=== PATIENT | female | born 1945 | race Caucasian/White ===

== ENCOUNTER 2017-07-20 18:08 | Observation (INO) | payer MEDICARE, SELFPAY ==
[2017-07-20] VITALS (8 sets, daily range): BP systolic 129–210; BP diastolic 91–105; PULSE 91–115; RESP 16–20; TEMP 36.6–37.3; O2SAT 96–98; BMI 21.4; BMI 21.5
--- NOTE | 2017-07-20 20:14 | EKG12_ITS ---
Test Reason : DIZZINESS Blood Pressure : / mmHG Vent. Rate : 102 BPM Atrial Rate : 102 BPM P-R Int : 184 ms QRS Dur : 104 ms QT Int : 394 ms P-R-T Axes : 059 069 006 degrees QTc Int : [address] & T wave abnormality, consider anterior ischemia Abnormal ECG Confirmed by BRYCE BARAJAS, JASVIR ([id number]), film editor supervisor KIM RENDON ([id number]) on 07/23/2017 2:58:05 PM Referred By: SAUNDRA Confirmed By:JASVIR WU MD
[2017-07-20] MEDS: 0.9% Normal Saline 1,000 ML 1000 ML IV (20:43)
[2017-07-20 20:46] LABS: Bacteria 0 SEEN /hpf (None Seen)
[2017-07-20 20:51] LABS: Color, Urine Yellow (Yellow); Glucose, Dipstick Normal (Normal); Ketone-Dipstick 50 mg/dl (Negative); Leukocyte Esterase-Dipstick 25 /ul (Negative); Nitrite-Dipstick Negative (Negative); Occult Blood-Urine 50 /ul (Negative); Protein-Dipstick 15 mg/dl (Negative); Urine Bilirubin Dipstick Negative (Negative); Urine Clarity Clear (Clear); Urine Urobilinogen Normal (Normal)
[2017-07-20 20:53] LABS: Absolute Neutrophil Count 7.1 X10^3/uL (2.0-7.7); Basophil# 0.01 X10^3/uL; Basophil% 0.1 % (0-1); Eosinophil# 0.01 X10^3/uL; Eosinophils% 0.1 % (0-5); Hematocrit 43.5 % (37-47); Hemoglobin 14.3 g/dl (12.0-15.0); Lymphocyte % 23.2 % (19-41); Mean Corp Hgb Conc 32.9 g/gl (32-36); Mean Corpuscular Hgb 30.7 pg (27.0-32.0); Mean Corpuscular Volume 93.3 fL (81-99); Mean Platelet Vol. 10.2 fl (6.2-12.0); Monocyte% 7.7 % (0-10); Neutrophil # 7.11 X10^3/uL (2.7-7.7); Neutrophil % 68.8 % (47-70); Platelet Count 243 K/mm3 (150-450); RBC Distribution Width CV 12.3 % (11.6-14.6); RBC Distribution Width SD 41.6 fl (35.1-43.9); Red Blood Count 4.66 M/mm3 (4.2-5.4); White Blood Count 10.3 K/mm3 (4.4-11.0)
[2017-07-20 20:55] LABS: POSITIVE COUNT NO; POSITIVE DIFFERENTIAL NO; POSITIVE MORPHOLOGY NO
[2017-07-20 20:56] LABS: International Normalized Ratio 1.1; Prothrombin Time (Protime)PT. 14.4 SECONDS (11.7-14.9)
[2017-07-20 20:57] LABS: Mucous, Urine 2+ /hpf (<or=2+); Red Blood Cells-Urine 0-5 SEEN /hpf (0-5); Squamous Epithelial Cells - UA 0-5 SEEN /hpf (5-10); White Blood Cells 0-5 SEEN /hpf (0-5)
[2017-07-20 20:57] LABS: Partial Thromboplast Time 27.9 Seconds (24.1-36.2)
[2017-07-20 21:15] LABS: ALB/GLOB Ratio 1.3 RATIO (0.9-2.4); AST(SGOT) 28 U/L (15-37); Alanine Aminotransfer ALT/SGPT 20 U/L (13-56); Albumin, Serum 4.1 g/dL (3.2-5.0); Alkaline Phosphatase 95 U/L (45-117); Anion Gap 11 (5-15); BUN 14 mg/dL (7-18); BUN/Creat Ratio 17.9 RATIO (10-20); Calcium,Total 8.7 mg/dL (8.5-10.1); Chloride 108 mmol/L (98-107); Creatinine, Serum 0.78 mg/dL (0.55-1.02); EST Glomerular Filtration Rate 76 mL/min (>60); Est Glom Filt Rate - Afr Amer 92 mL/min (>60); Estimated Creatinine Clearance 42.62 ml/min; Globulin 3.1 g/dL (2.2-4.2); Glucose 99 mg/dL (74-106); Lipase 134 U/L (73-393); Magnesium 2.5 mg/dL (1.6-2.6); Potassium 2.9 mmol/L (3.5-5.1); Protein, Total 7.2 g/dL (6.4-8.2); Sodium Level 144 mmol/L (136-145); Thyroid Stim Hormone (TSH) 0.92 uIU/mL (0.358-3.74)
[2017-07-20] MEDS: 0.9% Normal Saline 1,000 ML 150 ML IV (21:48)
--- NOTE | 2017-07-20 22:15 | RAD_ITS ---
STUDY: X-RAY CHEST REASON FOR EXAM: Female, 72 years old. Weakness TECHNIQUE: Single frontal view COMPARISON: None. FINDINGS: The lungs are expanded. There is minimal left basilar atelectasis. Normal size heart. Normal mediastinum and meghan. Normal visualized pulmonary arteries. Normal visualized aortic arch and descending thoracic aorta. Mild degenerative changes of the thoracic spine. Normal visualized ribs, clavicles, and shoulders. There is no demonstrated abnormality of the visualized soft tissue structures of the upper abdomen. RAD/Chest 1 View (Portable) IMPRESSION: Minimal left basilar atelectasis. Electronically Signed: Sagar Tesfaye DO at 22:27 EST Tel [phone], Service support ,
--- NOTE | 2017-07-20 22:23 | PCM.HP.STD ---
Problem List (1) Hypertension Status: Chronic (2) Personal history of squamous cell carcinoma of skin Status: Chronic Comment: Z85.828 (3) Neoplasm of skin of upper arm Status: Chronic Comment: D49.2 8 mm lesion left anterior arm (4) Neoplasm of skin of eyelid Status: Chronic Comment: D49.2 8 mm lesion left lateral lower eyelid History of Present Illness Date of Admission: 07/20/17 Chief Complaint: Nausea and vomiting. The patient is a 72 year old F with past medical history as mentioned above presented to the emergency room because of nausea and vomiting. Her illness started last night mainly with nausea, this morning started to have vomiting, couple of times, associated with dizziness and poor appetite and without aggravating or relieving factors. Also, she complained of palpitation, felt that her heart is beating fast, no associated symptoms such as chest pain, syncope or presyncope. She denied abdominal pain, diarrhea or constipation. Denies fever or chills. Reportedly, she has been going under a lot of stress because she is being evicted from her house. She had a history of hypertension and according to the patient, her blood pressure is under fair controlled with 3 different antihypertensive medications. She had a history of multiple skin cancer status post resection. In the emergency room, patient was clearly anxious and restless. She was afebrile, heart rate has been jumping from 90s up to 130s. Blood pressure is labile as well. Her pulse ox was 96% on room air. Her routine blood work was remarkable for potassium of 2.9, otherwise normal. Serum magnesium and TSH were normal. LFT was normal. Troponin was negative. EKG revealed normal sinus rhythm, normal NE interval, normal QRS, inverted T-wave in lead V2, ST segment depression in leads V3, V4, V5 and V6 and those changes are new compared to EKG from March,. Chest x-ray showed questionable no acute findings. She is being admitted for hypokalemia, EKG changes, uncontrolled hypertension and tachyarrhythmia. 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) C44.119 8 mm basal cell carcinoma left lateral lower eyelid Family history of skin cancer (Chronic) Z80.8 Personal history of squamous cell carcinoma of skin (Chronic) Z85.828 Personal history of malignant melanoma (Chronic) Z85.820 Neoplasm of skin of upper arm (Chronic) D49.2 8 mm lesion left anterior arm Neoplasm of skin of eyelid (Chronic) D49.2 8 mm lesion left lateral lower eyelid Allergies shellfish derived Allergy (Verified 07/20/17 18:10) Swelling tetracycline Adverse Reaction (Verified 07/20/17 18:10) Nausea/Vom/Diarrhea Home Medications: Ambulatory Orders Medication Instructions Recorded Bee Pollen 550 mg PO DAILY 11/25/15 Calcium Carbonate [Calcium] 600 mg PO DAILY 11/25/15 Cyanocobalamin (Vitamin B-12) 1,000 mcg PO DAILY 11/25/15 [Vitamin B-12] Hydrochlorothiazide [Hctz] 25 mg PO DAILY 11/25/15 Lisinopril [Zestril] 20 mg PO BID 11/25/15 Metoprolol Tartrate [Lopressor 50 mg PO BID 11/25/15 (beta gavino)] Proplius 1 tab PO DAILY 11/25/15 [place] Jelly 500 mg PO DAILY 11/25/15 Vitamin A 8,000 unit PO DAILY 11/25/15 Vitamin E 1,000 unit PO DAILY 03/05/17 Amlodipine [Norvasc] 5 mg PO DAILY 03/30/17 L. Acidophilus/Pectin, [place] 1 each PO BID #8 tablet 03/30/17 [Acidophilus-Pectin Captab] ProMETHAzine [Phenergan] 25 mg PO Q6H PRN PRN 07/20/17 Surgical History: hysterectomy Psychiatric History: No pertinent psych hx SENIOR DIRECTOR OF STRATEGY History: No pertinent SENIOR DIRECTOR OF STRATEGY history Lives: Spouse/ Significant Other Smoking Status: Former smoker Alcohol: None Drugs: None - *Family History Maternal History Items: No pertinent history Paternal History Items: No pertinent history Review of Systems Constitutional: Reports: Anorexia. Denies: Chills, Fever, Weakness Eyes: Denies: Blurred vision, Double vision, Drainage, Redness HEENT: Denies: Difficulty Hearing, Ear Pain, Eye Pain, Nasal Congestion, Sore Throat Cardiovascular: Reports: Light Headedness. Denies: Chest Pain, Chest Pressure, Edema, Heaviness, Orthopnea, Paroxysmal Noc. Dyspnea, Syncope Respiratory: Denies: Cough, Pleuritic Pain, Shortness of Breath, Sputum production, Wheezing Gastrointestinal: Reports: Nausea, Vomiting. Denies: Abdominal Pain, Constipation, Diarrhea Genitourinary: Denies: Dysuria, Frequency, Hematuria Musculoskeletal: Denies: Arm Pain, Back Pain, Foot Pain Skin: Denies: Dryness, Rash Neurological: Denies: Balance problems, Double vision, Change in Speech, Slurred speech, Confusion, Headaches, Incoordination, Numbness Psychiatric: Denies: Anxiety, Depression Endocrine: Denies: Change in Body Habitus, Polydipsia VTE Information - Inpt Only VTE Present on Admission: No VTE Mechan Device Prophylaxis: None VTE Pharm Prophylaxis ordered?: Yes - Physical Exam General: Alert, Oriented x3, Cooperative, No apparent distress HEENT: Atraumatic, PERRLA, EOMI Oral: Moist Mucosa, No Gingival or Mucosal Lesions/ Ulcerations Neck: Supple, No JVD, Negative Carotid Bruits, Trachea Midline, Thyroid Normal Size and Texture Lungs: Clear to auscultation, No rhonchi, No wheeze, No rales, Diminished Cardiovascular: Regular rate, Regular Rhythm, Normal S1, Normal S2, PMI Normal, Tachycardic Abdomen: Bowel Sounds Present, Soft, Non Tender, Non-Distended, No Hepato-splenomegaly Extremities: No clubbing, No cyanosis, No edema Skin: No rashes, No breakdown Lymphatic: No Cervical, Supraclavicular, or Inguinal Adenopathy Neurological: Cranial nerves II-XII grossly intact, Motor Exam 5/5 strength throughout Psych/Mental Status: Anxious, Alert and oriented to time, place, person, mood and affect Vital Signs Temp Pulse Resp BP Pulse Ox 99.1 F 109 H 20 H 180/105 H 96 07/20/17 22:19 07/20/17 22:13 07/20/17 22:13 07/20/17 22:19 07/20/17 22:13 Oxygen Delivery Method Room Air Weight: 125 lb Body Mass Index (BMI) 21.4 Laboratory Tests Past 24 Hrs 07/20/17 07/20/17 07/20/17 20:27 20:32 20:32 WBC 10.3 RBC 4.66 Hgb 14.3 Hct 43.5 MCV 93.3 MCH 30.7 MCHC 32.9 RDW 12.3 RDW Differential 41.6 Plt Count 243 MPV 10.2 Immature Gran % (Auto) 0.100 Neut % (Auto) 68.8 Lymph % (Auto) 23.2 [place] % (Auto) 7.7 Eos % (Auto) 0.1 Baso % (Auto) 0.1 Absolute Neuts (auto) 7.1 Absolute Lymphs (auto) 2.40 Total Counted Not Reportable PT 14.4 INR 1.1 APTT 27.9 Sodium Potassium Chloride Carbon Dioxide Anion Gap BUN Creatinine Estim Creat Clear Calc Est GFR (MDRD) Af Amer Est GFR (MDRD) Non-Af BUN/Creatinine Ratio Glucose Calcium Magnesium Total Bilirubin AST ALT Alkaline Phosphatase Troponin I Total Protein Albumin Globulin Albumin/Globulin Ratio Lipase TSH Urine Color Yellow Urine Clarity Clear Urine pH 6.0 Ur Specific [place] 1.010 Urine Protein 15 H Urine Glucose (UA) Normal Urine Ketones 50 H Urine Occult Blood 50 H Urine Nitrite Negative Urine Bilirubin Negative Urine Urobilinogen Normal Ur Leukocyte Esterase 25 H Urine RBC 0-5 SEEN Urine WBC 0-5 SEEN Ur Squamous Epith Cells 0-5 SEEN Urine Bacteria 0 SEEN Urine Mucus 2+ 07/20/17 20:32 WBC RBC Hgb Hct MCV MCH MCHC RDW RDW Differential Plt Count MPV Immature Gran % (Auto) Neut % (Auto) Lymph % (Auto) [place] % (Auto) Eos % (Auto) Baso % (Auto) Absolute Neuts (auto) Absolute Lymphs (auto) Total Counted PT INR APTT Sodium 144 Potassium 2.9 L Chloride 108 H Carbon Dioxide 25.0 Anion Gap 11 BUN 14 Creatinine 0.78 Estim Creat Clear Calc 42.62 Est GFR (MDRD) Af Amer 92 Est GFR (MDRD) Non-Af 76 BUN/Creatinine Ratio 17.9 Glucose 99 Calcium 8.7 Magnesium 2.5 Total Bilirubin 0.90 AST 28 ALT 20 Alkaline Phosphatase 95 Troponin I < 0.02 Total Protein 7.2 Albumin 4.1 Globulin 3.1 Albumin/Globulin Ratio 1.3 Lipase 134 TSH 0.92 Urine Color Urine Clarity Urine pH Ur Specific [place] Urine Protein Urine Glucose (UA) Urine Ketones Urine Occult Blood Urine Nitrite Urine Bilirubin Urine Urobilinogen Ur Leukocyte Esterase Urine RBC Urine WBC Ur Squamous Epith Cells Urine Bacteria Urine Mucus Assessment/Plan This is a 72 years old female patient presented to the emergency room because of nausea and vomiting, found to have hypokalemia with EKG changes as well as tachyarrhythmia. #1 hypokalemia: This is likely because of nausea, vomiting as well as HCTZ. Potassium is 2.9. EKG reviewed, revealed changes as mentioned below but they are not typical for hypokalemia. Serum TSH and serum magnesium were normal. Troponin is negative. Plan: Admit to PCU for observation, aggressive replacement of potassium, repeat BMP tomorrow morning, repeat EKG tomorrow morning, hold HCTZ, PT OT evaluation and treatment. #2 EKG changes: EKG revealed sinus rhythm, inverted T-wave in lead V2 and ST segment depression in leads V3, V4, V5 and V6. Those changes are new compared to EKG from March,. No acute ischemic changes. Troponin is negative. Plan: Serial cardiac enzymes, repeat EKG tomorrow morning, replace potassium as above. #3 tachyarrhythmia: During his stay in the emergency department, patient's heart rate has been fluctuating significantly from 90s up to 130s. She has been in sinus tachycardia with occasional PVCs. EKG changes as noted above. TSH is normal. Patient mentioned that she is undergoing lots of stress as she is being evicted from her house. Plan: Cardiac monitoring, 2D echocardiogram. May need to consider cardiology consult if patient continued to have this tachyarrhythmia. #4 hypertension: Blood pressure is uncontrolled, has been around 170-180 systolic. Plan to continue Norvasc, lisinopril and metoprolol, IV hydralazine as needed. #5 history of multiple skin cancers, status post resections. #6 DVT prophylaxis: Subcu Lovenox. This note was generated with [employer] dictation software. It may contain incorrect words, spelling, and punctuation that were not noted in checking the note before signing. Code Visit OBSV E&M: [id number] Initial observation care L3
--- NOTE | 2017-07-20 23:12 | ECHOD_ITS ---
Reason For Study: Arrhythmia Procedure This was a 2D Doppler, Color Flow transthoracic echocardiogram. Exam performed portable in patient room. Left Ventricle Normal size and thickness. The estimated ejection fraction is 65 %. Normal diastology for age. No regional wall motion abnormalities noted. Right Ventricle Normal size and thickness. Normal systolic function. Atria Normal left atrium. Normal right atrium. Normal atrial septum. Mitral Valve The mitral valve is structurally normal. No prolapse or stenosis seen. Trivial mitral valve insufficiency. Tricuspid Valve Normal tricuspid valve. Mild (1+) tricuspid valve insufficiency. Right ventricular systolic pressure estimated to be 40 mmHg. Mild pulmonary hypertension. Aortic Valve Normal aortic valve. Trisinus/trileaflet aortic valve. Pulmonic Valve Normal pulmonic valve. Great Vessels Normal aortic root. Normal arch. Normal inferior vena cava. Inferior vena cava collapse with sniff. Pericardium/Pleural No pericardial effusion. MMode/2D Measurements & Calculations LVIDd: 3.8 cm IVSd: 1.2 cm Ao root diam: 2.4 cm LVIDs: 1.7 cm LVPWd: 0.96 cm LA dimension: 5.0 cm RVDd: 2.8 cm FS: 55.3 % LAV(MOD-bp): 63.0 ml LA A4 area: 18.6 cm2 RA A4 area: 13.7 cm2 LAV(MOD-bp) Indexed: 39.3 ml/m2 LAV(MOD-sp2): 79.1 ml LAV(MOD-sp4): 48.2 ml Doppler Measurements & Calculations MV E max rogers: 97.9 cm/sec Lat Peak E' Rogers: 8.6 cm/sec Med Peak E' Rogers: 7.7 cm/sec MV A max rogers: 88.4 cm/sec E/E' lat: 11.3 E/E' med: 12.8 MV E/A: 1.1 Ao V2 max: 153.7 cm/sec LV V1 max: 135.6 cm/sec PA V2 max: 89.8 cm/sec Ao max P.4 mmHg LV V1 max P.4 mmHg TR max rogers: 280.4 cm/sec TR max P.5 mmHg Interpretation Summary The estimated ejection fraction is 65 %. Normal diastology for age. Trivial mitral valve insufficiency. Mild (1+) tricuspid valve insufficiency. Right ventricular systolic pressure estimated to be 40 mmHg. Mild pulmonary hypertension. There is no comparison study available. Ordering Physician: Eamon Saunders Referring Physician: Julius Bach M.D. Performed By: Rosario Rashid RDCS
--- NOTE | 2017-07-20 23:38 | ED.VISSUMM ---
- ER Visit Summary Date of Service: 07/20/17 Chief Complaint: Vomiting History of Present Illness: The patient is a 72 F who yesterday evening began to have vomiting. She states she had one episode of diarrhea. She states she has been able to keep a little bit of 7-Up down today but otherwise has not had anything to eat or drink. She notes some chills and sweats. No chest pain no shortness of breath. The patient is under a difficult amount of stress. She is currently being evicted from her home. Physical Examination: Afebrile vital signs are stable Gen: Well-nourished well-developed Head: Normocephalic atraumatic Eyes: Perrl EOMI ENT: TMs clear no rhinorrhea moist mucous membranes Neck: Supple no lymphadenopathy no JVD nontender CVS: Regular rate rhythm no murmurs normal S1-S2 Respiratory: No distress clear to auscultation bilaterally chest nontender Abdomen: Soft nontender nondistended normal bowel sounds no masses Back: Nontender Extremity: Nontender no edema Skin: Normal color no rash Neuro: alert orientated ?3 CN II-XII intact normal strength sensation reflexes gait cerebellar Psych: Patient very anxious Test Results: EKG sinus at a rate of 102. There are deeply inverted T waves in V1 V2 that are changed from March 2017. Potassium is 2.9. Emergency Department Course and Treatment: Patient received potassium chloride fluids and Zofran. Plan is admission Impression: 1. Abnormal EKG 2. Hypokalemia 3. Vomiting This note was generated with [employer] dictation software. It may contain incorrect words, spelling, and punctuation that were not noted in review of the chart prior to signing ED Disposition - Plan for ED Patient: Disposition: Acute Care Hospital [facility] Chief Complaint: Nausea/Vomiting
[2017-07-20] MEDS: 0.9% Normal Saline 1,000 ML 75 ML IV (23:40)
--- NOTE | 2017-07-20 23:45 | ED.DCSUM_ITS ---
- ER Visit Summary Date of Service: 07/20/17 Chief Complaint: Vomiting History of Present Illness: The patient is a 72 F who yesterday evening began to have vomiting. She states she had one episode of diarrhea. She states she has been able to keep a little bit of 7-Up down today but otherwise has not had anything to eat or drink. She notes some chills and sweats. No chest pain no shortness of breath. The patient is under a difficult amount of stress. She is currently being evicted from her home. Physical Examination: Afebrile vital signs are stable Gen: Well-nourished well-developed Head: Normocephalic atraumatic Eyes: Perrl EOMI ENT: TMs clear no rhinorrhea moist mucous membranes Neck: Supple no lymphadenopathy no JVD nontender CVS: Regular rate rhythm no murmurs normal S1-S2 Respiratory: No distress clear to auscultation bilaterally chest nontender Abdomen: Soft nontender nondistended normal bowel sounds no masses Back: Nontender Extremity: Nontender no edema Skin: Normal color no rash Neuro: alert orientated ?3 CN II-XII intact normal strength sensation reflexes gait cerebellar Psych: Patient very anxious Test Results: EKG sinus at a rate of 102. There are deeply inverted T waves in V1 V2 that are changed from March 2017. Potassium is 2.9. Emergency Department Course and Treatment: Patient received potassium chloride fluids and Zofran. Plan is admission Impression: 1. Abnormal EKG 2. Hypokalemia 3. Vomiting This note was generated with [employer] dictation software. It may contain incorrect words, spelling, and punctuation that were not noted in review of the chart prior to signing ED Disposition - Plan for ED Patient: Disposition: Acute Care Hospital [facility] Chief Complaint: Nausea/Vomiting
[2017-07-20] MEDS: Ondansetron 4 MG/2 ML Vial IV (23:49)
[2017-07-21] VITALS (9 sets, daily range): BP systolic 125–157; BP diastolic 59–82; PULSE 39–98; RESP 16–18; TEMP 36.6–37.2; O2SAT 94–98
[2017-07-21] MEDS: Acetaminophen 325 MG Tablet 650 MG PO (01:42)
--- NOTE | 2017-07-21 05:55 | EKG12_ITS ---
Test Reason : AM EKG Blood Pressure : / mmHG Vent. Rate : 084 BPM Atrial Rate : 084 BPM P-R Int : 132 ms QRS Dur : 100 ms QT Int : 426 ms P-R-T Axes : 067 072 -16 degrees QTc Int : 503 ms Sinus rhythm with Premature atrial complexes and Premature ventricular complexes or Fusion complexes Prolonged QT Abnormal ECG When compared with ECG of 20-JUL-2017 20:32, MANUAL COMPARISON REQUIRED, DATA IS UNCONFIRMED Confirmed by BRYCE BARAJAS, JASVIR ([id number]), slot editor KIM RENDON ([id number]) on 07/23/2017 3:18:00 PM Referred By: DOUGLAS Confirmed By:JASVIR WU MD
[2017-07-21 06:42] LABS: Anion Gap 8 (5-15); BUN 12 mg/dL (7-18); Calcium,Total 7.9 mg/dL (8.5-10.1); Chloride 114 mmol/L (98-107); Creatinine, Serum 0.63 mg/dL (0.55-1.02); EST Glomerular Filtration Rate 98 mL/min (>60); Est Glom Filt Rate - Afr Amer 118 mL/min (>60); Estimated Creatinine Clearance 42.62 ml/min; Glucose 84 mg/dL (74-106); Potassium 3.6 mmol/L (3.5-5.1); Sodium Level 146 mmol/L (136-145)
[2017-07-21] MEDS: amLODIPine 5 MG Tablet PO (09:40)
[2017-07-21] MEDS: Enoxaparin 40 MG/0.4 ML Syringe SC (09:40)
[2017-07-21] MEDS: Metoprolol Tartrate 50 MG Tablet PO (09:40)
[2017-07-21] MEDS: Lisinopril 20 MG Tablet PO (09:40)
--- NOTE | 2017-07-21 10:53 | PCM.DC ---
- Discharge Diagnoses Current Active Problems: Current Active and Chronic Problems Hypertension (Chronic) You will use the following diet at home:: No restrictions Discharge Activity: Return to Normal Activity Call your doctor if you observe: Shortness of breath, Dizziness, Fainting spells, Chest pain, Increased palpitations (irregular heartbeat) Allergies/Adverse Reactions: Allergies shellfish derived Allergy (Verified 07/20/17 18:10) Swelling tetracycline Adverse Reaction (Verified 07/20/17 18:10) Nausea/Vom/Diarrhea Medications to take at Discharge Bee Pollen 550 mg PO DAILY 11/25/15 Calcium Carbonate [Calcium] 600 mg PO DAILY 11/25/15 Cyanocobalamin (Vitamin B-12) [Vitamin B-12] 1,000 mcg PO DAILY 11/25/15 Hydrochlorothiazide [Hctz] 25 mg PO DAILY 11/25/15 Lisinopril [Zestril] 20 mg PO BID 11/25/15 Metoprolol Tartrate [Lopressor (beta gavino)] 50 mg PO BID 11/25/15 Proplius 1 tab PO DAILY 11/25/15 [place] Jelly 500 mg PO DAILY 11/25/15 Vitamin A 8,000 unit PO DAILY 11/25/15 Vitamin E 1,000 unit PO DAILY 03/05/17 Amlodipine [Norvasc] 5 mg PO DAILY 03/30/17 L. Acidophilus/Pectin, [place] [Acidophilus-Pectin Captab] 1 each PO BID #8 tablet 03/30/17 ProMETHAzine [Phenergan] 25 mg PO Q6H PRN PRN 07/20/17 Primary Care Physician: Earlene Al,Out of [NON-STAFF] - Please follow up with your Primary Care Physician in: 1 Week Proposed Discharge Date: 07/21/17
--- NOTE | 2017-07-21 10:56 | DCINST_ITS ---
- Discharge Diagnoses Current Active Problems: Current Active and Chronic Problems Hypertension (Chronic) You will use the following diet at home:: No restrictions Discharge Activity: Return to Normal Activity Call your doctor if you observe: Shortness of breath, Dizziness, Fainting spells , Chest pain, Increased palpitations (irregular heartbeat) Allergies/Adverse Reactions: Allergies shellfish derived Allergy (Verified 07/20/17 18:10) Swelling tetracycline Adverse Reaction (Verified 07/20/17 18:10) Nausea/Vom/Diarrhea Medications to take at Discharge Bee Pollen 550 mg PO DAILY 11/25/15 Calcium Carbonate [Calcium] 600 mg PO DAILY 11/25/15 Cyanocobalamin (Vitamin B-12) [Vitamin B-12] 1,000 mcg PO DAILY 11/25/15 Hydrochlorothiazide [Hctz] 25 mg PO DAILY 11/25/15 Lisinopril [Zestril] 20 mg PO BID 11/25/15 Metoprolol Tartrate [Lopressor (beta gavino)] 50 mg PO BID 11/25/15 Proplius 1 tab PO DAILY 11/25/15 [place] Jelly 500 mg PO DAILY 11/25/15 Vitamin A 8,000 unit PO DAILY 11/25/15 Vitamin E 1,000 unit PO DAILY 03/05/17 Amlodipine [Norvasc] 5 mg PO DAILY 03/30/17 L. Acidophilus/Pectin, [place] [Acidophilus-Pectin Captab] 1 each PO BID #8 tablet 03/30/17 ProMETHAzine [Phenergan] 25 mg PO Q6H PRN PRN 07/20/17 Primary Care Physician: Earlene Al,Out of [NON-STAFF] - Please follow up with your Primary Care Physician in: 1 Week Proposed Discharge Date: 07/21/17
--- NOTE | 2017-07-21 11:03 | DS.PCM_ITS ---
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 Agree with the above notes by the nurse practitioner. The patient is a 72 year old F Zane with intractable nausea and vomiting. Patient states that she gets stomach fits during periods of stress. Patient is recently undergoing emotional stress with the eviction that she and her are experiencing in having move into another house in [place]. Patient underwent workup which is thus far been unremarkable. Echocardiogram and repeat troponins are still pending but barring any abnormalities with those and patient can be discharged. Feels that much of the patient's gastric tussive symptoms are related with underlying anxiety and I talked the patient about this and recommended that was Zoloft and as well as Zofran as needed. Patient will need follow-up with her primary care doctor to see about titrating the Zoloft upwards as tolerated. I told the patient that this may only be a temporary measure but not to expect any noticeable change for a few weeks after starting medication. [] Discharge Diet: No Restrictions Discharge Activity: Return to Normal Activity Home Medications: Medications to take at Discharge Bee Pollen 550 mg PO DAILY 11/25/15 Calcium Carbonate [Calcium] 600 mg PO DAILY 11/25/15 Cyanocobalamin (Vitamin B-12) [Vitamin B-12] 1,000 mcg PO DAILY 11/25/15 Hydrochlorothiazide [Hctz] 25 mg PO DAILY 11/25/15 Lisinopril [Zestril] 20 mg PO BID 11/25/15 Metoprolol Tartrate [Lopressor (beta gavino)] 50 mg PO BID 11/25/15 Proplius 1 tab PO DAILY 11/25/15 Clawson Jelly 500 mg PO DAILY 11/25/15 Vitamin A 8,000 unit PO DAILY 11/25/15 Vitamin E 1,000 unit PO DAILY 03/05/17 Amlodipine [Norvasc] 5 mg PO DAILY 03/30/17 L. Acidophilus/Pectin, [place] [Acidophilus-Pectin [place]] 1 each PO BID #8 tablet 03/30/17 ProMETHAzine [Phenergan] 25 mg PO Q6H PRN PRN 07/20/17 Primary Care Physician: Earlene Doctor,Out of [NON-STAFF] - Meaningful Use Info Meaningful Use Diagnoses (Choose all that apply): None applicable Code Visit OBSV E&M: 02197 Observation care discharge <Trudy Castillo - Last Filed: 07/21/17 16:06> Discharge Date and Diagnosis Date of Admission: 07/20/17 Date of Discharge: 07/21/17 - Primary Discharge Diagnosis 1. Nausea, vomiting 2. Hypokalemia secondary to #1 3. 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) D04.62 8 mm squamous cell carcinoma in situ left anterior arm Basal cell carcinoma of left lower eyelid (Chronic) C44.119 8 mm basal cell carcinoma left lateral lower eyelid Family history of skin cancer (Chronic) Z80.8 Personal history of squamous cell carcinoma of skin (Chronic) Z85.828 Personal history of malignant melanoma (Chronic) Z85.820 Neoplasm of skin of upper arm (Chronic) D49.2 8 mm lesion left anterior arm Neoplasm of skin of eyelid (Chronic) D49.2 8 mm lesion left lateral lower eyelid Hospital Course and Treatment Imaging Results: Diagnostic Data Chest X-Ray 07/20/17 22:15 IMPRESSION: Minimal left basilar atelectasis. Electronically Signed: Sagar Tesfaye DO at 22:27 EST Tel [phone], Service support , Operations: None Procedures: 2-D Echocardiogram Summary of Care Provided: The patient is a 72 year old F admitted 07/20/2017 due to nausea and vomiting. Patient states she is currently moving out of her home due to being evicted. She states her and her both lost their jobs recently. She states she has a history of nervous stomach. And believes her presenting symptoms are associated to increased stress related to financial concerns. She denies diarrhea. Denies fever, chills. Denies chest pain, shortness of breath. Nausea and vomiting have resolved. She tolerated breakfast without difficulty. She does state she has poor appetite which she also feels is related to her nerves. EKG in the emergency room was noted to have T-wave inversion in lead II and ST segment depression in leads V3 through V6. Repeat EKG morning of discharge showed no change from prior. Troponin negative. Patient sinus rhythm to sinus tachycardia during admission. Heart rate in the 70s at discharge. Chest x-ray negative for acute process. Patient found to have hypokalemia with a potassium of 2.9 on admission secondary to nausea, vomiting. This was replaced, potassium 3.6 on discharge. Patient's past medical history includes hypertension and history of skin cancer. Blood pressure stable. Patient will resume home medication regimen. Echocardiogram showed an estimated ejection fraction of 65%, RVSP estimated to be 40 mmHg, mild tricuspid valve insufficiency. Patient will be discharged on Zofran as needed for nausea as well as Zoloft for depression. Patient seen and examined prior to discharge. Heart rate regular rate and rhythm. Lungs clear. Abdomen soft, nontender. Neuro grossly intact. Vital signs stable. Patient denies further nausea, vomiting. Denies chest pain, shortness of breath as noted above. Patient also states she has been doing significant physical exertion with moving out of her home. She denies chest pain or shortness of breath associated with exertion. Patient stable for discharge home to follow-up with primary care physician. Discharge Diet: No Restrictions Discharge Activity: Return to Normal Activity Call your doctor if you observe: Shortness of breath, Dizziness, Fainting spells , Chest pain, Increased palpitations (irregular heartbeat) Please follow up with your Primary Care Physician in: 1 Week Disposition: Home Minutes spent on discharge:: 35 Patient Condition:: Stable Meaningful Use Info Meaningful Use Diagnoses (Choose all that apply): None applicable
--- NOTE | 2017-07-21 11:27 | CASEMGMT ---
SW received a referral for patient. She has had a lot of stressors lately. SW met with patient, introduced self as well as role at [facility]. She explained to SW that her lost his job and she lost her job. She said her was working with an agency that was supposed to help them keep their home, but it didn't work out. She said someone came to their house and told them they needed to be out by Wednesday. They found a duplex to rent and her is moving stuff in right now. She said she has a finicky stomach and cannot handle stress very well. She said she and her are actually not anymore. They and he someone else. It lasted less than a year and he came back to her. They did not get re-. They went to counseling and it helped. DONNY listened and provided emotional support. DONNY offered to give patient a list of counseling agencies in the area and she accepted. She said she has insurance that her bought for both of them. She thanked DONNY for stopping by. Erica GONZALEZ MSW
[2017-07-21] MEDS: Ondansetron 4 MG/2 ML Vial IV (11:51)
--- NOTE | 2017-07-21 14:00 | CASEMGMT ---
DONNY received a voice mail from patient's sister in [place]. She is concerned patient is being discharged too early. SW called her back. She said she is surprised patient is being discharged already. DONNY told her that the physicians feel she is medically ready and does not require an acute hospital setting. She said patient is confused about who to follow up with, medications etc. DONNY told her that the nurse will go over all of her discharge instructions. She asked if SW's office follows up with patient's that are displaced. DONNY told her patient has a place to go to and no SW does not usually follow up with patients. DONNY told her SW gave her a list of counseling agencies. She asked if anything indicated patient needs help at home. DONNY told her she is getting around fine and it does not appear she is in need of home health. She said patient did fall and break her ankle 2 years ago. She thanked DONNY for calling her back. Erica GONZALEZ MSW
== END 2017-07-21 17:21 | disposition home or self-care (01) ==
LOC: ED 20:20 → PCU 22:25
PROVIDERS: Admitting Provider Hospitalist; Emergency Provider Emergency Medicine
DX: R11.2 Nausea with vomiting, unspecified (principal); I10 Essential (primary) hypertension; E87.6 Hypokalemia; Z85.828 Personal history of other malignant neoplasm of skin; Z79.899 Other long term (current) drug therapy; Z87.891 Personal history of nicotine dependence; F41.9 Anxiety disorder, unspecified; I27.20 Pulmonary hypertension, unspecified; I08.1 Rheumatic disorders of both mitral and tricuspid valves; I45.81 Long QT syndrome
CPT/HCPCS: 36415; 71045; 80048; 80053; 81001; 83690; 83735; 84443; 84484; 85025; 85610; 85730; 93005; 93306; 96361; 96372; 96374; 96375; 96376; 97162; 97166; 99218; 99282; J7030; A4216; G0378; J2405

== ENCOUNTER 2017-09-06 21:25 | Emergency (ER) | payer MEDICARE, SELFPAY ==
[2017-09-06 21:26] VITALS: BP 198/84; PULSE 76; RESP 17; TEMP 37; O2SAT 99; BMI 21.4
--- NOTE | 2017-09-06 22:10 | EKG12_ITS ---
Test Reason : Blood Pressure : / mmHG Vent. Rate : 064 BPM Atrial Rate : 075 BPM P-R Int : 140 ms QRS Dur : 104 ms QT Int : 466 ms P-R-T Axes : 065 055 -14 degrees QTc Int : 480 ms Sinus rhythm with marked sinus arrhythmia Incomplete right bundle branch block Nonspecific ST abnormality Abnormal ECG Confirmed by ALAN BARAJAS, STEVE ([id number]), assistant film editor KIM RENDON ([id number]) on 09/09/2017 12:50:12 PM Referred By: DERRICK Confirmed By:STEVE PHILLIPS MD
--- NOTE | 2017-09-06 22:37 | ED.DCSUM_ITS ---
- ER Visit Summary Date of Service: 09/06/17 Chief Complaint: Nausea, vomiting, generalized weakness History of Present Illness: The patient is a 72 F medical history significant for hypertension presents with nausea, vomiting, generalized weakness. Patient symptoms began earlier today. She states she became acutely nauseated. She has had a few bouts of bilious vomiting. She states she had one bout of loose watery diarrhea. She states she had similar symptoms about a month ago and she was actually admitted at that time because her potassium was low. She has had some bilateral hand cramping. She denies any chest pain. She denies any abdominal pain. She has had no fevers or chills. Patient has had prior hysterectomy and fibroid removal, but no other abdominal surgery. She denies any recent change in diet. She denies any recent change in medication. Physical Examination: Vital signs reviewed General: Well-nourished, well-developed Head: Normocephalic, atraumatic Eyes: Pupils equal and reactive, extraocular muscles intact Neck, supple, no lymphadenopathy Heart: Regular rate and rhythm Respiratory: No distress, clear bilaterally Abdomen: Soft, nontender, nondistended, no peritoneal signs Back: Nontender Extremities: Nontender, no edema, no cords Skin: Normal color no rash Neuro: Alert and oriented, no focal or lateralizing deficits Test Results: [] Emergency Department Course and Treatment: IV was established. The patient has a benign abdominal examination. I did not feel that imaging was necessary. I did obtain an EKG which was sinus with slight sinus arrhythmia. There is no prolonged QT or evidence of acute ischemic change. Patient was given Zofran with very minimal improvement of her nausea. Her labs do demonstrate a mild hypokalemia but otherwise unremarkable. Patient was given IV Phenergan. She had complete resolution of symptoms. She is resting comfortably. She was able to tolerate p.o. without issue. At this time, as the patient has had recent admission with workup and resolution of symptoms, I do feel that she is safe for outpatient therapy. The patient is comfortable with this plan of care. She will be discharged with oral Zofran. Treatment Plan: [] Disposition: Discharge Impression:. Nausea vomiting This note was generated with [employer] dictation software. It may contain incorrect words, spelling, and punctuation that were not noted in review of the chart prior to signing ED Disposition - Plan for ED Patient: Chief Complaint: Nausea/Vomiting/Diarrhea Instructions: ED Vomiting Diarrhea Nonspecific Ad Prescriptions: Ondansetron [Zofran Odt] 4 mg PO Q8H PRN PRN #10 tab PRN Reason: Nausea Referrals: Devan Bach [Primary Care Provider] -
[2017-09-06] MEDS: 0.9% Normal Saline 1,000 ML 1000 ML IV (22:45)
[2017-09-06] MEDS: Ondansetron 4 MG/2 ML Vial IV (22:45)
[2017-09-06 22:54] LABS: Bacteria 0 SEEN /hpf (None Seen)
[2017-09-06 22:56] LABS: Absolute Lymphocyte Count 1.47 X10^3/ul (0.83-4.51); Absolute Neutrophil Count 6.7 X10^3/uL (2.0-7.7); Basophil# 0.02 X10^3/uL; Basophil% 0.2 % (0-1); Eosinophil# 0.01 X10^3/uL; Eosinophils% 0.1 % (0-5); Hematocrit 42.6 % (37-47); Hemoglobin 14.2 g/dl (12.0-15.0); Lymphocyte # 1.47 X10^3/ul (4.0); Lymphocyte % 17.1 % (19-41); Mean Corp Hgb Conc 33.3 g/gl (32-36); Mean Corpuscular Hgb 30.7 pg (27.0-32.0); Mean Corpuscular Volume 92.2 fL (81-99); Mean Platelet Vol. 10.1 fl (6.2-12.0); Monocyte# 0.45 X10^3/uL; Monocyte% 5.2 % (0-10); Neutrophil # 6.66 X10^3/uL (2.7-7.7); Neutrophil % 77.3 % (47-70); Platelet Count 240 K/mm3 (150-450); RBC Distribution Width CV 12.1 % (11.6-14.6); RBC Distribution Width SD 40.7 fl (35.1-43.9); Red Blood Count 4.62 M/mm3 (4.2-5.4); White Blood Count 8.6 K/mm3 (4.4-11.0)
[2017-09-06 22:57] LABS: Color, Urine Yellow (Yellow); Glucose, Dipstick Normal (Normal); Ketone-Dipstick 50 mg/dl (Negative); Leukocyte Esterase-Dipstick 100 /ul (Negative); Nitrite-Dipstick Negative (Negative); Occult Blood-Urine 25 /ul (Negative); POSITIVE COUNT NO; POSITIVE DIFFERENTIAL NO; POSITIVE MORPHOLOGY NO; Protein-Dipstick 15 mg/dl (Negative); Urine Bilirubin Dipstick Negative (Negative); Urine Clarity Clear (Clear); Urine Urobilinogen Normal (Normal)
[2017-09-06 23:04] LABS: Mucous, Urine 1+ /hpf (<or=2+); Red Blood Cells-Urine 0-5 SEEN /hpf (0-5); Squamous Epithelial Cells - UA 0-5 SEEN /hpf (5-10); White Blood Cells 0-5 SEEN /hpf (0-5)
[2017-09-06 23:14] LABS: ALB/GLOB Ratio 1.4 RATIO (0.9-2.4); AST(SGOT) 14 U/L (15-37); Alanine Aminotransfer ALT/SGPT 16 U/L (13-56); Alkaline Phosphatase 105 U/L (45-117); Anion Gap 7 (5-15); BUN 13 mg/dL (7-18); BUN/Creat Ratio 13.6 RATIO (10-20); Chloride 105 mmol/L (98-107); Creatinine, Serum 0.95 mg/dL (0.55-1.02); EST Glomerular Filtration Rate 61 mL/min (>60); Est Glom Filt Rate - Afr Amer 74 mL/min (>60); Estimated Creatinine Clearance 44.86 ml/min; Globulin 2.9 g/dL (2.2-4.2); Glucose 131 mg/dL (74-106); Lipase 154 U/L (73-393); Potassium 3.1 mmol/L (3.5-5.1); Protein, Total 6.9 g/dL (6.4-8.2); Sodium Level 139 mmol/L (136-145)
[2017-09-06] MEDS: proMETHazine 25 MG/ML Syringe 6.25 MG IV (23:51)
[2017-09-07 00:11] VITALS: BP 165/48; PULSE 84; RESP 16; O2SAT 96
[2017-09-07] MEDS: Ondansetron ODT 4 MG Tablet PO (00:26)
[2017-09-07 00:40] VITALS: BP 165/48; PULSE 84; RESP 18; O2SAT 100
== END 2017-09-07 01:15 | disposition home or self-care (01) ==
LOC: ED 23:23
PROVIDERS: Emergency Provider Emergency Medicine
DX: R11.2 Nausea with vomiting, unspecified (principal); E87.6 Hypokalemia; R19.7 Diarrhea, unspecified; I10 Essential (primary) hypertension; Z79.899 Other long term (current) drug therapy
CPT/HCPCS: 80053; 81001; 83690; 85025; 93005; 96361; 96374; 96375; 99283; J7030; A4216; J2405

== ENCOUNTER → 2018-02-01 13:45 | Outpatient (CLI) | payer MEDICARE, SELFPAY ==
--- NOTE | 2018-02-01 13:47 | STEWCON_ITS ---
Reason For Study: DYSPNEA, SOB, ABN EKG Stress Results Protocol: Stress Echocardiogram Maximum Predicted HR: 146 bpm Target HR: 124 bpm% Maximum Pr edicted HR: 137 % DurationHeart Rate Stage (mm:ss) (bpm) BPCom ment BASELINE 73 180/90 C/O DIZZINESS OFF AND ON ROSANA PROTOCOL- STAGE 1 3:00 20 0 192/90SOB, ATRIAL ARRHYTHMIAS RECOVERY 82 / Stress Duration: 3:00 mm:ss Maximum Stress HR: 200 bpmM ETS: 4 Baseline Echocardiogram Findings Stress Echo Wall motion Data Resting WMIntermediate WMStress WM Resting Wall Motion Wall Motion Stress All segments Normal. Anterio-Basal: Hyperkinetic. Ejection Fraction 65 %. Lateral-Basal: Hyperkinetic. Posterior-Basal: Hyperkinetic. Infero-Basal: Hyperkinetic. Basal inferoseptal: Hyperkinetic. Basal anteroseptal: Hyperkinetic. Mid-Anterior : Hypokinetic. Mid-Lateral : Hypokinetic. Mid-Posterior: Hyperkinetic. Mid-Inferior: Hyperkinetic. Mid-inferoseptal : Hyperkinetic. Mid-anteroseptal : Hypokinetic. Anterior [place] : Hypokinetic. Inferior [place] : Hyperkinetic. Lateral [place] : Hypokinetic. Septall [place] : Hyperkinetic. Ejection Fraction 70 %. Stress Results Heart rate response: appropriate Blood pressure response: resting hypertension - appropriate response Arrhythmias: occasional to frequent PACs pretest, during exercise, and recovery; occasional PVCs in recovery; paroxysmal irregular narrow complex tachycardia during pretest, exercise, and recovery appearing c/w an ectopic atrial tachycardia Functional capacity: decreased Stopped secondary to: dyspnea. EKG Data Baseline ECG: NSR, RBBB. Peak exercise ECG: approximately 0.5-1.0 mm of horizontal / upsloping ST segment depression in leads II, III, aVF, and V3V6 with gradual resolution towards baseline in recovery. Symptoms with Stress No c/o chest discomfort during exercise / recovery. Interpretation Summary Abnormal (Adequate) Stress Echocardiogram Ordering Physician: Drew Cárdenas Referring Physician: Drew Cárdenas Performed By: Bhargav Osman RCS
== END ==
LOC: CVS 13:46
PROVIDERS: Visit Provider Internal Medicine Cardiovascular Disease
DX: R94.31 Abnormal electrocardiogram [ECG] [EKG] (principal); R06.02 Shortness of breath
CPT/HCPCS: 93017; 93350

== ENCOUNTER → 2018-02-21 14:25 | Outpatient (CLI) | payer MEDICARE, SELFPAY ==
--- NOTE | 2018-02-21 14:32 | RAD_ITS ---
STUDY: X-RAY CHEST REASON FOR EXAM: Female, 72 years old. Shortness of breath preop heart catheter TECHNIQUE: PA and lateral views of the chest. COMPARISON: July 20, 2017 chest x-ray FINDINGS: The lungs are clear and expanded. There is no demonstrated pleural abnormality. Normal size heart. Normal mediastinum and meghan. Normal visualized pulmonary arteries. There is atherosclerotic calcification of the aortic arch with tortuosity. There are diffuse degenerative changes of the visualized thoracic spine. Normal visualized ribs, clavicles, and shoulders. There is no demonstrated abnormality of the visualized soft tissue structures of the upper abdomen. RAD/Chest PA and Lateral IMPRESSION: Degenerative changes, as described above. No demonstrated acute cardiopulmonary process. Electronically Signed: Mary Tran MD at 16:59 EDT Tel , Service support ,
== END ==
LOC: RAD 14:26
PROVIDERS: Referring Provider Internal Medicine Cardiovascular Disease; Visit Provider Internal Medicine Cardiovascular Disease
DX: R06.02 Shortness of breath (principal); R94.31 Abnormal electrocardiogram [ECG] [EKG]; R94.39 Abnormal result of other cardiovascular function study
CPT/HCPCS: 71046

== ENCOUNTER 2018-02-23 07:58 | Day surgery (SDC) | payer MEDICARE, SELFPAY ==
[2018-02-21 15:33] LABS: Hematocrit 41.9 % (37-47); Hemoglobin 13.6 g/dl (12.0-15.0); Mean Corp Hgb Conc 32.5 g/gl (32-36); Mean Corpuscular Hgb 31.1 pg (27.0-32.0); Mean Corpuscular Volume 95.9 fL (81-99); Mean Platelet Vol. 10.7 fl (6.2-12.0); Platelet Count 241 K/mm3 (150-450); RBC Distribution Width CV 12.2 % (11.6-14.6); RBC Distribution Width SD 42.6 fl (35.1-43.9); Red Blood Count 4.37 M/mm3 (4.2-5.4); White Blood Count 7.4 K/mm3 (4.4-11.0)
[2018-02-21 15:41] LABS: Scan Indicated on CBC? Y/N NO
[2018-02-21 15:44] LABS: Partial Thromboplast Time 28.1 Seconds (24.1-36.2); Prothrombin Time (Protime)PT. 13.4 SECONDS (11.7-14.9)
[2018-02-21 16:06] LABS: Anion Gap 6 (5-15); BUN 13 mg/dL (7-18); BUN/Creat Ratio 15.8 RATIO (10-20); Calcium,Total 8.5 mg/dL (8.5-10.1); Chloride 107 mmol/L (98-107); Creatinine, Serum 0.82 mg/dL (0.55-1.02); EST Glomerular Filtration Rate 72 mL/min (>60); Est Glom Filt Rate - Afr Amer 87 mL/min (>60); Glucose 84 mg/dL (74-106); Sodium Level 142 mmol/L (136-145)
[2018-02-22 10:46] VITALS: BMI 19.1
--- NOTE | 2018-02-23 10:03 | CL.D_ITS ---
Patient Name: CARLOS HORTA Study Date: 02/23/2018 Performing: Drew Cárdenas MD Ht: 66.92 inches 170 cm : 1945 Wt: 121.25 lbs 55 kg Age: 72 Gender: female BSA: 1.63 PROCEDURE(S) PERFORMED [id number]-[id number]/COR/LV CLINICAL PROFILE AND INDICATIONS Indications: Suspected CAD Heart Failure: None Stress/Imaging Stress Echocardiogram: Yes Result: PositiveStress Echocardiogram: Positive Angina Classification Anginal Classification w/in 2 Weeks: CCS III CAD Presentations: Other: shortness of breath / dyspnea on exertion CONCLUSIONS Elevated Left Ventricular End Diastolic Pressure Normal LV size, wall motion,and systolic function LVEF: by LV gram 70 % [place] Multivessel CAD (mild luminal irregularities) Of note: fluoroscopic findings potentially c/w LVH and a promient papillary muscle RECOMMENDATIONS Risk factor modification Medical therapy DESCRIPTION OF PROCEDURE The patient arrived to the procedure lab. The risks and benefits of the procedure as well as a full d escription of our services here and current unavailability of surgical backup were fully explained to the patient and/or their significant other prior to the catheterization. The Timeout was completed, verifying the correct patient and procedure. The patient's procedural site was prepped and draped in the usual fashion. Local anesthetic was given subcutaneously to right groin region with Lidocaine 2%. Using a modified Seldinger technique, arterial access was obtained via the right femoral artery, a 4 Fr sheath was inserted Left Coronary Artery selective angiography was performed in multiple views us ing a 4 Fr. JL4 catheter. Right Coronary Artery selective angiography was then performed in multiple views using a 4 Fr. 3DRC catheter. Left Ventriculography was performed in MARLOW projection using a 4 Fr . Pigtail catheter. LV to AO pullback pressures were then recorded.The arterial sheath was pulled and manual compression applied until hemostasis is achieved. CORONARY ANGIOGRAPHY DOMINANCE: Right Dominant LEFT HEART ASSESSMENT Left Ventricular Ejection Fraction: by LV Gram 70 % Normal LV wall motion Elevated Left Ventricular End Diastolic Pressure LVEDP: 24 mmHg LEFT MAIN: Angiographically normal LEFT ANTERIOR DECENDING ARTERY: PROX LAD: Mild luminal irregularities CIRCUMFLEX ARTERY: OM 1: Mid - Mild luminal irregularities RIGHT CORONARY ARTERY: Mild luminal irregularities VALVE FINDINGS: Normal Aortic Valve function Normal Mitral Valve function AORTIC ROOT: Angiographically normal COMPLICATIONS No Complications PROCEDURE MEDICATIONS Oxygen: 2 L/min via nasal cannula Baby Aspirin (81mg) 2 Tabs PO 02/23/2018 08:19:44 Benadryl 50 mg IV @ 02/23/2018 08:51:43 Solu-medrol 125 mg IV 02/23/2018 08:51:50 SUMMARY OF HEMODYNAMIC DATA Time AIR REST ECG 08:22:41 AO 146/76 (109) SA 09:14:03 LV 147/12, 31 09:24:49 LV 145/11, 24 09:24:56 LV 146/15, 23 09:26:24 LVp 147/8, 25 09:26:31 AOp 153/71 (106) 09:26:36 Signed By Drew Cárdenas MD On 02/23/2018 10:02:38 Drew Cárdenas MD
== END 2018-02-23 14:00 | disposition home or self-care (01) ==
LOC: CLSP 08:01
PROVIDERS: Referring Provider Internal Medicine Cardiovascular Disease; Visit Provider Internal Medicine Cardiovascular Disease
DX: I25.10 Atherosclerotic heart disease of native coronary artery without angina pectoris (principal); I10 Essential (primary) hypertension; I27.20 Pulmonary hypertension, unspecified; R94.39 Abnormal result of other cardiovascular function study; R94.31 Abnormal electrocardiogram [ECG] [EKG]; Z79.02 Long term (current) use of antithrombotics/antiplatelets; Z79.82 Long term (current) use of aspirin; Z79.52 Long term (current) use of systemic steroids; Z79.899 Other long term (current) drug therapy; Z85.820 Personal history of malignant melanoma of skin; Z87.891 Personal history of nicotine dependence
CPT/HCPCS: 36415; 80048; 85027; 85610; 85730; 93458; J7040; C1769; C1894; Q9967